=== PATIENT | female | born 1960 | race Caucasian/White ===

== ENCOUNTER 2017-02-04 10:22 | Emergency (ER) | payer MEDICAID ==
[2017-02-04 11:28] VITALS: BP 144/99
== END 2017-02-04 11:28 | disposition home or self-care (01) ==
LOC: ED 10:22
DX: S92.505A Nondisplaced unspecified fracture of left lesser toe(s), initial encounter for closed fracture (principal); E11.9 Type 2 diabetes mellitus without complications; I10 Essential (primary) hypertension; X58.XXXA Exposure to other specified factors, initial encounter; Y93.89 Activity, other specified; Y99.8 Other external cause status; Y92.89 Other specified places as the place of occurrence of the external cause